=== PATIENT | male | born 1955 | race Caucasian/White ===

== ENCOUNTER → 2022-02-16 | Emergency (ER) | payer OTHER ==
[~2022-02-16] VITALS: Ht 175.3 cm; Wt 90.7 kg
[~2022-02-16] MED LIST: CELEBREX200MG PO; CYCLOBENZAPRINE10 MG PO; FOLIC ACID1 MG PO; KETO10TA2 PO; MECLIZINE HCL25 MG PO; METFORMIN HCL PO; NEURONTIN300 MG PO; NORFLEX100MG PO; PROTONIX20 MG PO; SIMVASTATIN80 MG PO; SKELAXIN800 MG PO; TRAMADOL HCL50 MG PO
== END | disposition home or self-care (01) ==
LOC: ER 17:25
DX: R42 Dizziness and giddiness (principal); M54.50 Low back pain, unspecified; I10 Essential (primary) hypertension; E11.9 Type 2 diabetes mellitus without complications; Z79.84 Long term (current) use of oral hypoglycemic drugs